=== PATIENT | female | born 1985 | race Caucasian/White ===

== ENCOUNTER 2019-04-04 16:17 | Emergency (ER) | payer OTHER ==
[~2019-04-04] VITALS: Ht 182.9 cm; Wt 86.2 kg
[2019-04-04] MEDS ORDERED: ANTI DEPRESSANT (16:32)
[2019-04-04] MEDS ORDERED: PROZAC20 MG (16:32)
[2019-04-04] MEDS ORDERED: IMITREX100 MG PO (16:32)
[2019-04-04 16:48] LABS: URINE BILIRUBIN NEGATIVE (Negative); URINE BLOOD NEGATIVE (Negative); URINE CLARITY CLEAR; URINE COLOR YELLOW; URINE GLUCOSE-RANDOM NEGATIVE (Negative); URINE KETONES NEGATIVE (Negative); URINE LEUKOCYTES-REFLEX NEGATIVE (Negative); URINE NITRITE-REFLEX NEGATIVE (Negative); URINE PROTEIN NEGATIVE (Negative); URINE SPECIFIC GRAVITY >= 1.030 (1.005-1.030); URINE UROBILINOGEN 0.2 E.U./dl (0.2-1.0)
[2019-04-04] MEDS ORDERED: BACTRIM DS TAB1 EACH PO (17:46)
[2019-04-04 18:06] VITALS: BP 100/47
== END 2019-04-04 18:08 | disposition home or self-care (01) ==
LOC: M.ERS 16:17
PROVIDERS: Physician Assistant
DX: N39.0 Urinary tract infection, site not specified (principal); N89.8 Other specified noninflammatory disorders of vagina; Z88.5 Allergy status to narcotic agent; Z88.8 Allergy status to other drugs, medicaments and biological substances

== ENCOUNTER 2021-09-12 12:00 | Emergency (ER) | payer OTHER, MEDICAID ==
[~2021-09-12] VITALS: Ht 182.9 cm; Wt 90.7 kg
[~2021-09-12 12:00] MED LIST: ANTI DEPRESSANT; BACTRIM DS TAB1 EACH PO; IMITREX100 MG PO; PROZAC20 MG
[2021-09-12] MEDS ORDERED: PHENAZOPYRIDIN200 M2 PO (12:25)
[2021-09-12] MEDS ORDERED: MACROBID 100 M100 MG PO (12:25)
[2021-09-12 12:29] LABS: URINE BILIRUBIN NEGATIVE (Negative); URINE BLOOD TRACE (Negative); URINE CLARITY CLEAR; URINE COLOR YELLOW; URINE GLUCOSE-RANDOM NEGATIVE (Negative); URINE KETONES NEGATIVE (Negative); URINE NITRITE-REFLEX NEGATIVE (Negative); URINE PROTEIN NEGATIVE (Negative); URINE SPECIFIC GRAVITY <= 1.005 (1.005-1.030); URINE UROBILINOGEN 0.2 E.U./dl (0.2-1.0)
[2021-09-12 12:30] VITALS: BP 126/70
[2021-09-12 12:30] LABS: URINE LEUKOCYTES-REFLEX 3+ (Negative)
[2021-09-12 12:34] LABS: BACTERIA-REFLEX 1-9 Few /HPF (None Seen); CASTS None Seen /LPF (None Seen); CRYSTALS None Seen /LPF (None Seen); MUCUS 0-3 Light strn/LPF (None Seen); SQUAMOUS 0-3 Few /LPF (0-3); URINE RBC 0-2 Rare /HPF (0-2); URINE WBC-REFLEX >25 Many /HPF (0-5)
== END 2021-09-12 12:31 | disposition home or self-care (01) ==
LOC: M.ERS 12:00
PROVIDERS: Physician Assistant
DX: N39.0 Urinary tract infection, site not specified (principal); N89.8 Other specified noninflammatory disorders of vagina; Z88.5 Allergy status to narcotic agent; Z88.8 Allergy status to other drugs, medicaments and biological substances